=== PATIENT | male | born 1975 | race African-American/Black ===

== ENCOUNTER 2018-09-25 19:12 | Observation (INO) ==
[2018-09-25 20:09] LABS: BASO# 0.01 X1000 (0.0-0.2); BASO% 0.1 % (0.0-0.8); EOS# 0.53 X1000 (0.0-0.7); EOS% 7.1 % (0.0-10.0); HEMATOCRIT 49.4 % (42.0-52.0); HEMOGLOBIN 16.8 g/dL (14.0-18.0); LYMPH# 3.19 X1000 (1.2-3.4); MCH 31.1 PG (27-31); MCV 91.3 FL (81-99); MONO# 0.67 X1000 (0.11-0.59); MPV 11.3 FL (7.4-10.4); NEUT# 3.02 X1000 (1.4-6.5); NEUT% 40.8 % (42.2-75.2); PLT 204 X1000 (130-400); RBC 5.41 XMIL (4.7-6.1); RDW 12.7 % (11.5-14.5); WBC 7.42 X1000 (4.8-10.8)
[2018-09-25 20:29] LABS: AGAP 9; BUN 17 mg/dL (8-22); CHLORIDE 104 mmol/L (98-107); COSMO 280; CREATININE 1.2 mg/dL (0.7-1.2); ESTIMATED GFR > 60; GLUCOSE 106 mg/dL (70-104); POTASSIUM 4.3 mmol/L (3.5-5.1); SODIUM 139 mmol/L (136-145); TCO2 26 mmol/L (25-35)
--- NOTE | 2018-09-25 20:41 | Diag Imaging Result Doc PS360 ---
EXAM: CT HEAD W/O CONTRAST 09/25/2018 HISTORY: headache TECHNIQUE: This exam was performed using automated exposure control, adjustment of mA or kV according to patient size, and/or use of iterative reconstruction technique. COMMENT: There is no evidence of mass effect, bleed, abnormal extra-axial fluid collection, or hydrocephalus. There is a mucous retention cyst in the right maxillary sinus. Otherwise the paranasal sinuses are clear. The calvarium is intact. Compared to 02/18/2018, there has been no significant change in the appearance of the brain. IMPRESSION: No evidence of acute intracranial disease. Electronically signed by Papo Spivey 09/25/2018 8:39 PM
[2018-09-25] MEDS ORDERED: NS 1,000 ML IV ONE (20:49)
[2018-09-25] MEDS ORDERED: ZOFRAN IM ONE (20:49)
[2018-09-25] MEDS ORDERED: ZOFRAN IV ONE (21:09)
[2018-09-25] MEDS ORDERED: NORVASC PO ONE (21:35)
[2018-09-25 22:01] LABS: UR AMPHETAMINES QUAL NONE DETECTED (NONE DETECT); UR BARBITUATES QUAL NONE DETECTED (NONE DETECT); UR BENZODIAZEPIN QUAL NONE DETECTED (NONE DETECT); UR CANNABINOIDS QUAL PRESUMPTIVE POSITIVE (NONE DETECT); UR COCAINE QUAL NONE DETECTED (NONE DETECT); UR METHADONE QUAL NONE DETECTED (NONE DETECT); UR OPIATES QUAL NONE DETECTED (NONE DETECT); UR OXYCODONE QUAL NONE DETECTED (NONE DETECT); UR PCP QUAL NONE DETECTED (NONE DETECT)
[2018-09-25 22:53] LABS: CK INDEX 0.9 (0.0-2.5); CK-MB 2.27 ng/mL (0.0-5.0)
[2018-09-25] MEDS ORDERED: TYLENOL PO PRN (23:40)
[2018-09-25] MEDS ORDERED: ZOFRAN IV PRN (23:40)
[2018-09-25] MEDS ORDERED: NS 1,000 ML IV SCH (23:45)
[2018-09-26 00:56] VITALS: BP 153/98
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
--- NOTE | 2018-09-27 09:41 | EKG Report ---
Test Performed on : 09/25/2018 9:17:55 PM Test Reason : syncope Blood Pressure : / mmHG Vent. Rate : 069 BPM Atrial Rate : 069 BPM P-R Int : 120 ms QRS Dur : 086 ms QT Int : 420 ms P-R-T Axes : 033 033 049 degrees QTc Int : 450 ms Normal sinus rhythm. Nonspecific T wave abnormality Abnormal ECG When compared with ECG of 18-FEB-2018 15:35, No significant change was found Unconfirmed Result
== END 2018-09-26 02:01 | disposition left against medical advice (07) ==
LOC: ED 19:12 → 4N 19:12
PROVIDERS: ATTEND Family Medicine
CPT/HCPCS: 70450; 80048; 80101; 80301; 80307; 80324; 80345; 80346; 80353; 80358; 80361; 80365; 82550; 82553; 82948; 83992; 84484; 85025; 93005; 96374; 99285; A9270; G0431; G0434; G0479; G0480; J2405; J7030; XXXXX